=== PATIENT | female | born 1980 | race Caucasian/White ===

== ENCOUNTER 2018-09-09 20:17 | Emergency (ER) | payer MEDICARE, MEDICAID, SELFPAY ==
[2018-09-09 20:18] VITALS: BP 161/101; PULSE 90; RESP 18; TEMP 36.8; O2SAT 97; BMI 43.7
[2018-09-09] MEDS: 0.9% Normal Saline 1,000 ML 1000 ML IV (21:22)
[2018-09-09] MEDS: Ketorolac 30 MG/ML Syringe IV (21:23)
[2018-09-09] MEDS: DiphenhydrAMINE 50 MG/ML Syringe 25 MG IV (21:23)
[2018-09-09] MEDS: Metoclopramide 10 MG/2 ML Vial IV (21:23)
[2018-09-09 22:03] VITALS: BP 146/82; PULSE 72
--- NOTE | 2018-09-09 22:48 | ED.DCSUM_ITS ---
- ER Visit Summary Date of Service: 09/09/18 Chief Complaint: [Headache History of Present Illness: The patient is a 37 F [presents to the emergency department with 2-day history of headache that came on gradually and is typical of her migraines. Patient describes it is left-sided with a throbbing sensati on. Patient states that she has had nausea but no vomiting. Patient states that loud sounds bother her. She denies any recent illness. She denies any head injuries.] Physical Examination: [HEENT-PERRLA, EOMI. Cranial nerves II through XII grossly intact. TMs clear. Mucous membranes moist. No adenopathy. Cardiovascular-regular rate and rhythm without murmur or ectopy Lungs-clear to auscultation, chest wall stable without crepitus or subcu emphysema Abdomen-normoactive bowel sounds, soft, nontender, no rebound or rigidity, no peritoneal signs. Neuro subh-pryfqj-nd-nose and pttg-rt-rbod testing within normal limits, negative Romberg, negative , Fundi benign Extremities-intact ?4, normal range of motion, normal pulses, atraumatic] Test Results: [None indicated] Emergency Department Course and Treatment: [He was given a liter normal same fluid bolus. Patient given Reglan, Benadryl, Toradol, and her headache resolved.] Treatment Plan: [Follow up with primary care physician as needed] Disposition: [Discharged to home in stable condition] Impression: [Migrainous cephalgia-resolved] This note was generated with [employer] dictation software. It may contain incorrect words, spelling, and punctuation that were not noted in review of the chart prior to signing ED Disposition - Plan for ED Patient: Referrals: Fermín Zimmerman MD [Primary Care Provider] -
--- NOTE | 2018-09-09 22:51 | ED.DEP ---
ED Disposition - Plan for ED Patient: Instructions: HEADACHE, Migraine (Classical) Referrals: Fermín Zimmerman MD [Primary Care Provider] - As Needed
== END 2018-09-09 22:57 | disposition home or self-care (01) ==
LOC: ED 21:31
PROVIDERS: Emergency Provider Emergency Medicine; Family Provider Student in an Organized Health Care Education/Training Program; PCP Student in an Organized Health Care Education/Training Program
DX: G43.909 Migraine, unspecified, not intractable, without status migrainosus (principal); Z72.0 Tobacco use
CPT/HCPCS: 99283; J7030; A4216

== ENCOUNTER 2018-09-24 18:26 | Emergency (ER) | payer MEDICARE, MEDICAID, SELFPAY ==
[2018-09-24 18:27] VITALS: BP 145/94; PULSE 104; RESP 16; TEMP 36.8; O2SAT 98; BMI 42.7
[2018-09-24] MEDS: 0.9% Normal Saline 1,000 ML 1000 ML IV (19:24)
[2018-09-24] MEDS: Ondansetron 4 MG/2 ML Vial IV (19:24)
[2018-09-24 19:44] LABS: Absolute Lymphocyte Count 3.03 X10^3/uL (0.83-4.51); Absolute Neutrophil Count 5.8 X10^3/uL (2.0-7.7); Basophil# 0.04 X10^3/uL; Basophil% 0.4 % (0-1); Eosinophil# 0.19 X10^3/uL; Eosinophils% 1.9 % (0-5); Hematocrit 42.4 % (37-47); Hemoglobin 13.9 g/dL (12.0-15.0); Lymphocyte # 3.03 X10^3/ul (4.0); Lymphocyte % 30.7 % (19-41); Mean Corp Hgb Conc 32.8 g/dL (32-36); Mean Corpuscular Hgb 27.1 pg (27.0-32.0); Mean Corpuscular Volume 82.8 fL (81-99); Mean Platelet Vol. 9.5 fl (6.2-12.0); Monocyte# 0.83 X10^3/uL; Monocyte% 8.4 % (0-10); NRBC Flagged by Analyzer 0 % (0-5); Neutrophil # 5.76 X10^3/uL (2.7-7.7); Neutrophil % 58.3 % (47-70); Platelet Count 255 K/mm3 (150-450); RBC Distribution Width CV 13.3 % (11.6-14.6); RBC Distribution Width SD 39.8 fl (35.1-43.9); Red Blood Count 5.12 M/mm3 (4.2-5.4); White Blood Count 9.9 K/mm3 (4.4-11.0)
[2018-09-24 19:44] LABS: Mucous, Urine 0 SEEN /hpf (<or=2+); Red Blood Cells-Urine 0 SEEN /hpf (0-5); Squamous Epithelial Cells - UA 0 SEEN /hpf (5-10); White Blood Cells 0 SEEN /hpf (0-5)
[2018-09-24 19:50] LABS: Color, Urine Yellow (Yellow); Glucose, Dipstick Normal (Normal); Ketone-Dipstick Negative (Negative); Leukocyte Esterase-Dipstick Negative /ul (Negative); Nitrite-Dipstick Negative (Negative); Occult Blood-Urine Negative /ul (Negative); Protein-Dipstick Negative (Negative); Specific Gravity, Urine 1.015 (1.002-1.030); Urine Bilirubin Dipstick Negative (Negative); Urine Clarity Clear (Clear); Urine Urobilinogen Normal (Normal)
[2018-09-24 19:56] LABS: Bacteria RARE /hpf (None Seen)
[2018-09-24 19:57] LABS: Internal QC Validated? YES +Cl - CLEAR BKGD; Pregnancy, Serum, hCG Quali. NEGATIVE Negative
[2018-09-24 20:02] LABS: AST(SGOT) 12 U/L (15-37); Alanine Aminotransfer ALT/SGPT 20 U/L (13-56); Albumin, Serum 3.6 g/dL (3.2-5.0); Alkaline Phosphatase 86 U/L (45-117); Anion Gap 8 (5-15); BUN 11 mg/dL (7-18); BUN/Creat Ratio 11.9 RATIO (10-20); Calcium,Total 8.7 mg/dL (8.5-10.1); Chloride 101 mmol/L (98-107); Creatinine, Serum 0.92 mg/dL (0.55-1.02); EST Glomerular Filtration Rate 73 mL/min (>60); Est Glom Filt Rate - Afr Amer 88 mL/min (>60); Globulin 3.6 g/dL (2.2-4.2); Glucose 90 mg/dL (74-106); Lipase 87 U/L (73-393); Protein, Total 7.2 g/dL (6.4-8.2); Sodium Level 137 mmol/L (136-145)
--- NOTE | 2018-09-24 21:00 | ED.VISSUMM ---
- ER Visit Summary Date of Service: 09/24/18 Chief Complaint: Abdominal pain History of Present Illness: The patient is a 37 F who presents with abdominal pain that has been constant for the past week. Patient describes the pain as sharp. Patient states the pain is over the upper abdomen. Patient admits to some nausea and vomiting. Patient admits to subjective fevers and chills. Patient denies any diarrhea. Patient denies any urinary complaints. Patient denies any radiation of the pain. Patient states nothing makes the pain better or worse. Patient denies any melena or hematochezia. Physical Examination: Vital signs are stable. Patient is afebrile. Patient is in no acute distress. Oral mucosa is pink and moist. Neck is supple. Trachea is midline. There is no JVD noted. Heart was regular rate and rhythm. Lungs are clear and equal bilaterally. Abdomen is soft. Bowel sounds are normal. There is upper abdominal tenderness. There is no rebound or guarding noted. Cranial nerves II through XII are intact. There are no focal motor or sensory deficits noted. Test Results: CBC was normal. Comprehensive metabolic profile showed a mild hypokalemia of 3.0. Urinalysis was normal. Emergency Department Course and Treatment: Patient was given IV fluids. Patient was given Zofran. Patient was given a dose of K-Dur here. Patient was instructed to follow-up with her primary care physician in 5 to 7 days. Patient was given a prescription for Zofran. Patient was instructed to start with liquids and advance her diet as tolerated. Patient understood and was agreeable with the plan. All questions were answered. Disposition: Discharge home Impression: Upper abdominal pain This note was generated with [employer] dictation software. It may contain incorrect words, spelling, and punctuation that were not noted in review of the chart prior to signing ED Disposition - Plan for ED Patient: Disposition: Home or Assisted Living Diagnosis: Upper abdominal pain of unknown etiology Instructions: ABDOMINAL PAIN, Unknown Cause, (Female) Prescriptions: Ondansetron [Zofran Odt] 4 mg PO Q8H PRN PRN #10 tab PRN Reason: Nausea Prescription Printed Referrals: Fermín Zimmerman MD [Primary Care Provider] - 5-7 Days
[2018-09-24 21:24] VITALS: BP 138/72; PULSE 102; RESP 16; O2SAT 99
== END 2018-09-24 21:25 | disposition home or self-care (01) ==
PROVIDERS: Emergency Provider Emergency Medicine; Family Provider Student in an Organized Health Care Education/Training Program; PCP Student in an Organized Health Care Education/Training Program
DX: R10.10 Upper abdominal pain, unspecified (principal); R11.2 Nausea with vomiting, unspecified; M54.9 Dorsalgia, unspecified; F17.210 Nicotine dependence, cigarettes, uncomplicated; F32.9 Major depressive disorder, single episode, unspecified
CPT/HCPCS: 80053; 81001; 83690; 84703; 85025; 96361; 96374; 99284; J7030; J2405

== ENCOUNTER 2018-09-25 14:34 | Emergency (ER) | payer MEDICARE, MEDICAID, SELFPAY ==
[2018-09-24 18:27] VITALS: BMI 42.7
[2018-09-25 14:34] VITALS: BP 142/97; PULSE 87; RESP 16; TEMP 36.9; O2SAT 98; BMI 42.7
--- NOTE | 2018-09-25 15:09 | ED.VISSUMM ---
- ER Visit Summary Date of Service: 09/25/18 Chief Complaint: Nausea, vomiting and diarrhea with epigastric abdominal pain. History of Present Illness: The patient is a 37 F history of bipolar disorder and hypertension. He states the last week she has had nausea, vomiting and diarrhea. No melena or hematemesis. No fever. Was seen in this emergency department yesterday and extensive work-up including a CBC, BMP, lipase, liver and urinalysis and test all of which were negative. Patient states she is not feeling any better. Denies any fever. States the pain is epigastric and radiates around her back. She has had a prior cholecystectomy. Physical Examination: Well-appearing young female. Vital signs are stable. She is afebrile. She does not like septic or toxic. She does not look severely dehydrated. HEENT exam unremarkable. Moist mixed membranes. Neck nontender no lymphadenopathy. Lungs clear to auscultation bilaterally. Heart regular rate and rhythm no murmur rate about 90. Abdomen is soft and nondistended normal bowel sounds no peritoneal signs. No signs of obstruction. She does have mild epigastric tenderness. No rebound, guarding or rigidity. Extremities moves all 4. Neurovascular intact. No edema. Neurologically she is awake and alert with no focal motor deficits. She does have mild tenderness to her back that appears to be musculoskeletal etiology. Neurologically she is awake and alert with no focal motor deficits. Test Results: CBC normal. White count of 9. Hemoglobin 12. Electrolytes unremarkable potassium 3.2. Gap of 5. Normal creatinine. Lipase 83. Emergency Department Course and Treatment: Patient treated with IV Phenergan and IV fluids. I reviewed her entire work-up from yesterday which was negative. Repeat exam patient is doing well. Abdomen is benign. She will be discharged home. Treatment Plan: Tylenol and Motrin for pain. Zofran as needed for nausea. Disposition: Discharge Impression: Acute nausea, vomiting and diarrhea History of bipolar This note was generated with [employer] dictation software. It may contain incorrect words, spelling, and punctuation that were not noted in review of the chart prior to signing ED Disposition - Plan for ED Patient: Referrals: Fermín Zimmerman MD [Primary Care Provider] -
[2018-09-25] MEDS: 0.9% Normal Saline 1,000 ML 1000 ML IV (15:27)
[2018-09-25] MEDS: proMETHazine 25 MG/ML Syringe 12.5 MG IV (15:27)
[2018-09-25 15:40] LABS: Absolute Lymphocyte Count 2.68 X10^3/uL (0.83-4.51); Absolute Neutrophil Count 5.8 X10^3/uL (2.0-7.7); Basophil# 0.02 X10^3/uL; Basophil% 0.2 % (0-1); Eosinophil# 0.18 X10^3/uL; Eosinophils% 1.9 % (0-5); Hematocrit 39.8 % (37-47); Hemoglobin 12.9 g/dL (12.0-15.0); Lymphocyte # 2.68 X10^3/ul (4.0); Lymphocyte % 28.5 % (19-41); Mean Corp Hgb Conc 32.4 g/dL (32-36); Mean Corpuscular Hgb 26.9 pg (27.0-32.0); Mean Corpuscular Volume 82.9 fL (81-99); Mean Platelet Vol. 9.2 fl (6.2-12.0); Monocyte# 0.65 X10^3/uL; Monocyte% 6.9 % (0-10); NRBC Flagged by Analyzer 0 % (0-5); Neutrophil # 5.83 X10^3/uL (2.7-7.7); Neutrophil % 62.1 % (47-70); Platelet Count 228 K/mm3 (150-450); RBC Distribution Width CV 13.3 % (11.6-14.6); RBC Distribution Width SD 40.3 fl (35.1-43.9); White Blood Count 9.4 K/mm3 (4.4-11.0)
[2018-09-25 15:57] LABS: Anion Gap 5 (5-15); BUN 7 mg/dL (7-18); BUN/Creat Ratio 7.9 RATIO (10-20); Calcium,Total 8.7 mg/dL (8.5-10.1); Chloride 106 mmol/L (98-107); Creatinine, Serum 0.88 mg/dL (0.55-1.02); EST Glomerular Filtration Rate 77 mL/min (>60); Est Glom Filt Rate - Afr Amer 93 mL/min (>60); Estimated Creatinine Clearance 77.05 ml/min; Glucose 77 mg/dL (74-106); Lipase 83 U/L (73-393); Potassium 3.2 mmol/L (3.5-5.1); Sodium Level 137 mmol/L (136-145)
--- NOTE | 2018-09-25 16:51 | ED.DEP ---
ED Disposition - Plan for ED Patient: Disposition: Home or Assisted Living Instructions: ABDOMINAL PAIN, Unknown Cause, (Female) Prescriptions: Ondansetron [Zofran Odt] 4 mg PO Q8H PRN PRN #10 tab PRN Reason: Nausea Prescription Printed Referrals: Fermín Zimmerman MD [Primary Care Provider] - 3-5 Days if not improving Additional Instructions: Plan fluids and rest. Increase her diet slowly as tolerated. Zofran as needed for nausea. Follow-up with your doctor if not improving return to the ER if feeling worse. Your labs both today no last visit were unremarkable.
[2018-09-25 17:01] VITALS: BP 124/89; PULSE 77; RESP 18; O2SAT 99
--- NOTE | 2018-09-25 17:01 | ED.RN ---
PT GIVEN WRITTEN AND VERBAL DISCHARGE INSTRUCTIONS AND HOME GOING PRESCRIPTIONS. PT EDUCATED ON USE OF MEDICATION. PT VERBALIZES UNDERSTANDING AND DENIES ANY FURTHER QUESTIONS. PT IV D/C AND COVERED WITH 2X2 GAUZE AND PAPER TAPE. PRESSURE APPLIED TO SITE X 1MIN. PT AMBULATES OUT OF DEPT BY SELF.
== END 2018-09-25 17:03 | disposition home or self-care (01) ==
PROVIDERS: Emergency Provider Emergency Medicine; Family Provider Student in an Organized Health Care Education/Training Program; PCP Student in an Organized Health Care Education/Training Program
DX: R11.2 Nausea with vomiting, unspecified (principal); R19.7 Diarrhea, unspecified; F31.9 Bipolar disorder, unspecified; Z90.49 Acquired absence of other specified parts of digestive tract; R10.13 Epigastric pain; I10 Essential (primary) hypertension; Z72.0 Tobacco use
CPT/HCPCS: 80048; 83690; 85025; 96361; 96374; 99283; J7030

== ENCOUNTER 2018-09-27 22:10 | Emergency (ER) | payer MEDICARE, MEDICAID, SELFPAY ==
[2018-09-27 22:11] VITALS: BP 145/76; PULSE 85; RESP 14; TEMP 36.1; O2SAT 97; BMI 43.8
[2018-09-27] MEDS: Ketorolac 30 MG/ML Syringe 15 MG IV (23:16)
[2018-09-27] MEDS: DiphenhydrAMINE 50 MG/ML Syringe 25 MG IV (23:17)
[2018-09-27] MEDS: 0.9% Normal Saline 1,000 ML 999 ML IV (23:18)
[2018-09-27] MEDS: Metoclopramide 10 MG/2 ML Vial IV (23:18)
--- NOTE | 2018-09-28 00:12 | ED.VIS.GEN ---
History of Present Illness Chief Complaint: Headache Informant: Patient Onset: Today Context: Sudden Onset Timing: Continuous Quality: Throbbing unilateral headache Location: Left Current Severity: Moderate Maximum Severity: Severe Worsened by: Light Relieved by: Nothing Associated Symptoms: Nausea Narrative: Patient is a 37-year-old woman with known history of migraine headaches. She states this is her typical headache. She did not get relief with her normal home regimen. She denies loss of vision. She complains of unilateral blurred vision, left side. She denies any other HEENT symptoms. Denies cardiac arrest or symptoms. GI is positive for nausea otherwise negative. She denies dysuria, frequency, urgency or hematuria. Prior similar symptoms: Yes Recent Illness/Hospitalization: Yes - Past Medical History (1) History of migraine headaches Status: Acute Past Medical History - Allergies and Home Meds Allergies/Adverse Reactions: Allergies codeine Allergy (Verified 09/27/18 22:11) Rash loperamide [From Imodium A-D] Allergy (Verified 09/27/18 22:11) Rash adhesive tape Adverse Reaction (Verified 09/27/18 22:11) Rash naproxen Adverse Reaction (Verified 09/27/18 22:11) Bleeding Primary Care Physician: Fermín Zimmerman MD [Primary Care Provider] - Prior records reviewed: Yes Surgical History: noncontributory Smoking Status: Current every day smoker Alcohol: Rare Drugs: None Review of Systems General: Denies: Chills, Fever, Malaise, Subjective, Sweats, Weight loss, - Eyes: Reports: Blurred vision - left. Denies: Visual changes - left, Visual changes - right, Visual changes - bilaterally, Blurred vision - right, Blurred Vision - bilaterally, Diplopia, -, - ENT: Reports: - - Reports sonophobia.. Denies: Rhinorrhea, Sore throat Cardiovascular: Denies: Chest pain, Palpitations Respiratory: Denies: Dyspnea, Cough, Dyspnea on exertion Gastrointestinal: Reports: Nausea. Denies: Abdominal pain, Vomiting, Diarrhea, Constipation, Melena, Hematochezia, -, - Genitourinary: Denies: Dysuria, Hematuria, Frequency Musculoskeletal: Denies: Myalgias, Arthralgias, Neck pain, Back pain, Swelling, Extremity Pain, -, - Skin: Denies: Rash, Wounds Neurological: Reports: Headache. Denies: Weakness, Parasthesia, Numbness, -, - - She denies trouble with balance. Denies trouble with speech or swallowing. Psych: Reports: Depression Hematologic: Denies: Easy bruising, Easy bleeding, Lymphadenopathy, -, - Allergy: Denies: Uticaria, Swelling of the mouth, Swelling of the tongue, -, - Physical Exam Vital Signs/Narrative: Vital Signs Temp Pulse Resp BP Pulse Ox 09/27/18 22:11 96.9 F L 85 14 145/76 H 97 Inital Vital Signs reviewed: Yes General: Well nourished, Well developed, No Acute Distress Head: Normocephalic, Atraumatic Eyes: Perrl, EOMI ENT: Moist mucous membranes, No rhinorrhea Neck: Supple, Nontender Cardiovascular: Regular rate, Regular rhythm, No murmurs Respiratory: No distress, CTA bilaterally, Chest nontender Abdomen: Soft, Nontender, Nondistended, Normal bowel sounds, No masses Back: Nontender, Normal Inspection Extremities: Nontender, No edema Skin: Normal color, No rash, No Trauma. Negative for: Cyanosis, Diaphoresis, Jaundice Neurological: Alert, Oriented x3, Cranial nerves II-XII grossly intact, Normal Strength, Normal Sensation, Normal DTR, Normal Gait Psychological: Normal affect, Normal Mood Diagnostic/Tx/Re-eval - Medical Decision Making She and with her typical migraine headache. She was treated with IV Toradol, Benadryl and Reglan. She was reassessed at 0055. She reports marked improvement. Plan is to discharge to home. ED Disposition - Plan for ED Patient: Disposition: Home or Assisted Living Diagnosis: Ocular migraine with status migrainosus, not intractable Instructions: ED, Migraine (Classical) Referrals: Fermín Zimmerman MD [Primary Care Provider] -
[2018-09-28 00:19] VITALS: BP 123/64; PULSE 74; RESP 18; O2SAT 99
== END 2018-09-28 00:27 | disposition home or self-care (01) ==
PROVIDERS: Emergency Provider Emergency Medicine; Family Provider Student in an Organized Health Care Education/Training Program; PCP Student in an Organized Health Care Education/Training Program
DX: G43.109 Migraine with aura, not intractable, without status migrainosus (principal); F17.200 Nicotine dependence, unspecified, uncomplicated; Z88.6 Allergy status to analgesic agent
CPT/HCPCS: 96361; 96374; 96375; 99283; J7030; A4216

== ENCOUNTER 2018-09-30 16:29 | Emergency (ER) | payer MEDICARE, MEDICAID, SELFPAY ==
[2018-09-30 16:30] VITALS: BP 135/93; PULSE 86; RESP 16; TEMP 36.2; O2SAT 99; BMI 42.7
[2018-09-30] MEDS: Ketorolac 30 MG/ML Syringe IV (18:06)
[2018-09-30] MEDS: 0.9% Normal Saline 1,000 ML 999 ML IV (18:06)
[2018-09-30] MEDS: DiphenhydrAMINE 50 MG/ML Syringe IV (18:06)
[2018-09-30] MEDS: proCHLORPERazine 10 MG/2 ML Vial IV (18:06)
--- NOTE | 2018-09-30 18:40 | ED.DCSUM_ITS ---
- ER Visit Summary Date of Service: 09/30/18 Chief Complaint: Headache History of Present Illness: The patient is a 37 F with a headache. It feels like her prior migraines. She tried taking her Imitrex, but it is not helping. Worse with lights. No associated trauma. No blood thinner use. No new sympto ms. Physical Examination: Afebrile and vital signs unremarkable. Alert and oriented. Sitting in a dark room. HEENT exam unremarkable. Cranial nerves grossly intact. Normal strength and sensation. Normal skin. Heart regular. No respiratory distress. Test Results: None indicated Emergency Department Course and Treatment: Patient treated with Compazine, Benadryl, Toradol, and IV fluids. On reevaluation, her symptoms have almost resolved. She requested discharge. She will go home to rest and stay hydrated. Follow-up with her outpatient doctor. Return for any new or worsening issues. Treatment Plan: As above Disposition: Discharge Impression: 1. Acute recurrent migraine This note was generated with [employer] dictation software. It may contain incorrect words, spelling, and punctuation that were not noted in review of the chart prior to signing ED Disposition - Plan for ED Patient: Referrals: Fermín Zimmerman [Other]
--- NOTE | 2018-09-30 18:42 | ED.DEP ---
ED Disposition - Plan for ED Patient: Instructions: ED, Migraine (Classical) Referrals: Fermín Zimmerman [Other]
== END 2018-09-30 19:08 | disposition home or self-care (01) ==
PROVIDERS: Emergency Provider Emergency Medicine; Family Provider Student in an Organized Health Care Education/Training Program
DX: G43.909 Migraine, unspecified, not intractable, without status migrainosus (principal); F31.9 Bipolar disorder, unspecified
CPT/HCPCS: 99283; J7030; A4216